=== PATIENT | female | born 1960 | race Caucasian/White ===

== ENCOUNTER 2018-05-06 09:58 | Day surgery (SDC) | payer MEDICARE, MEDICAID ==
[~2018-05-06 09:58] MED LIST: CEFAZOLIN 2 Gram 2 GM/50 ML BAG IVPB ONE; CELECOXIB 100 MG CAPSULE PO ONE; FAMOTIDINE 20MG TABLET PO ONE; MECLIZINE 25 MG TABLET PO ONE; METOCLOPRAMIDE 10 MG TABLET PO ONE; VANCOMYCIN HCL 1,000 MG in DEXTROSE 5 % IN WATER 250 ML IVPB ONE
[2018-05-06] MEDS ORDERED: MIDAZOLAM HCL 2MG/2ML VIAL IV ONE (09:59)
[2018-05-06] MEDS ORDERED: EPHEDRINE SULFATE 50 MG/ML ML IV ONE (09:59)
[2018-05-06] MEDS ORDERED: PROPOFOL 10 MG/ML VIAL IV ONE (09:59)
[2018-05-06] MEDS ORDERED: *PACU ONLY* KETAMINE HCL 10 MG/ML (20ML) VIAL IV ONE (09:59)
[2018-05-06] MEDS ORDERED: CEFAZOLIN 2 Gram 2 GM/50 ML BAG IVPB ONE (09:59)
[2018-05-06] MEDS ORDERED: TRANEXAMIC ACID 1,000 MG/10 ML ML IV ONE ×2 (09:59)
[2018-05-06] MEDS ORDERED: 0.9 % SODIUM CHLORIDE 10 ML VIAL IVP ONE (09:59)
[2018-05-06] MEDS ORDERED: BUPIVACAINE 0.5% W/EPI MPF 30 ML VIAL IVP ONE (09:59)
[2018-05-06] MEDS ORDERED: PHENYLEPHRINE HCL 10 MG/ML VIAL IVP ONE (09:59)
[2018-05-06 11:02] LABS: ABO GROUP A; ANTIBODY SCREEN NEGATIVE (NEGATIVE); RH TYPE POSITIVE
[2018-05-06] MEDS ORDERED: ACETAMINOPHEN 325 MG TAB PO PRN (15:19)
[2018-05-06] MEDS ORDERED: NALOXONE 0.4 MG/1 ML VIAL IVP PRN (15:19)
[2018-05-06] MEDS ORDERED: ZOLPIDEM TARTRATE 5 MG TABLET PO PRN (15:19)
[2018-05-06] MEDS ORDERED: AL HYDROX/MAG HYDROX 30ML UD PO PRN (15:19)
[2018-05-06] MEDS ORDERED: TRAMADOL HCL 50 MG TABLET PO PRN (15:19)
[2018-05-06] MEDS ORDERED: HYDROCODONE/APAP 10/325 TABLET PO PRN (15:19)
[2018-05-06] MEDS ORDERED: ONDANSETRON HCL IV 4 MG/2 ML VIAL IVP PRN (15:19)
[2018-05-06] MEDS ORDERED: BISACODYL 10 MG SUPP RC PRN (15:19)
[2018-05-06] MEDS ORDERED: DIPHENHYDRAMINE HCL 25 MG CAPSULE PO PRN (15:19)
[2018-05-06] MEDS ORDERED: ACETAMINOPHEN W/ CODEINE 300MG/60MG TABLET PO PRN ×2 (15:19)
[2018-05-06] MEDS ORDERED: KETOROLAC 30 MG/ML VIAL IVP PRN ×2 (15:19)
[2018-05-06] MEDS ORDERED: MAGNESIUM HYDROXIDE 30 ML UDC PO PRN (15:19)
[2018-05-06] MEDS ORDERED: HYDROMORPHONE HCL 2 MG/ML VIAL IM PRN (15:19)
[2018-05-06] MEDS ORDERED: ALBUTEROL SULFATE (0.083%) 2.5 MG/3 ML NEB INH ONE (16:50)
[2018-05-06] MEDS: HYDROXYZINE PAMOATE 50 MG PO SCH ×2 (17:31→22:02)
[2018-05-06] MEDS: CEFAZOLIN 2 Gram 2 GM/50 ML BAG IVPB SCH (20:59)
[2018-05-06] MEDS: POTASSIUM CHLORIDE/D5-0.9%NACL 20 MEQ/1,000 ML BAG IV SCH (21:59)
[2018-05-06] MEDS ORDERED: PATIENT OWN MED: PRAZOSIN 2 MG PO SCH (22:00)
[2018-05-06] MEDS: DOCUSATE SODIUM 100 MG CAPSULE PO SCH (22:00)
[2018-05-06] MEDS ORDERED: ZOLPIDEM 6.25 MG PO SCH (22:00)
[2018-05-07] MEDS: HYDROCODONE/APAP 10/325 TABLET PO PRN ×3 (03:17→15:44)
[2018-05-07] MEDS: CEFAZOLIN 2 Gram 2 GM/50 ML BAG IVPB SCH ×2 (05:32→13:47)
[2018-05-07] MEDS: POTASSIUM CHLORIDE/D5-0.9%NACL 20 MEQ/1,000 ML BAG IV SCH ×2 (06:12→11:09)
[2018-05-07 07:00] LABS: HEMATOCRIT 38.4 % (35.0-47.0); HEMOGLOBIN 12.8 gm/dl (11.6-16.0)
[2018-05-07] MEDS ORDERED: PATIENT OWN MED: OMEPRAZOLE 20 MG PO SCH (07:00)
[2018-05-07 07:17] LABS: BLOOD UREA NITROGEN 8 mg/dL (6-20); CREATININE 0.8 mg/dL (0.5-0.9); EST GLOMERULAR FILTRATION RATE > 60 mL/min; GLUCOSE,RANDOM 151 mg/dL (74-109)
[2018-05-07] MEDS: DOCUSATE SODIUM 100 MG CAPSULE PO SCH (08:30)
[2018-05-07] MEDS: FERROUS SULFATE 325 MG TAB PO SCH (08:39)
[2018-05-07] MEDS ORDERED: PNEUM 23-VAL ADULT IM ONE (10:00)
[2018-05-07] MEDS ORDERED: RIVAROXABAN 10 MG TABLET PO SCH (10:00)
[2018-05-07] MEDS ORDERED: PATIENT OWN MED: VRAYLAR 3 MG PO SCH (10:00)
[2018-05-07] MEDS ORDERED: FETZIMA 120 MG PO SCH (10:00)
--- NOTE | 2018-05-07 10:46 | Rehab Evaluation ---
Patient Information - Patient Information Diagnosis: R knee DJD Ordered Treatment: PT Evaluate and Treat Status: Initial Evaluation Surgery: Yes (TKA R) Date of Surgery: 05/06/18 Past Medical/Surgical Hx: PAST MEDICAL/SURGICAL HISTORY Past Surgical History laparascope EGD c scope uterus removed PMH - Respiratory Hx Respiratory Disorders Yes Hx Asthma Yes: as a young child Hx Bronchitis Yes Hx Chronic Obstructive No Pulmonary Disease (COPD) Hx Dyspnea No Hx Pneumonia No Hx Pulmonary Embolism No Hx Sleep Apnea No Hx Tuberculosis No Hx of CPAP No PMH - Cardiovascular Hx Cardiovascular Disorders No Exercise Tolerance Good PMH - Neuro Hx Neurological Disorders No PMH - GI Hx Gastrointestinal Disorders Yes Hx Abdominal Pain No Hx Celiac Disease No Hx Crohn's Disease No Hx Diverticulitis No Hx Gastrointestinal Bleed No Hx Gastroesophageal Reflux Yes: on meds Hx Hepatitis/Jaundice No Hx Hiatal Hernia No Hx Irritable Bowel No Hx Liver Disease No Hx Nausea/Vomiting No Hx Obstructive Bowel No Hx Pancreatitis No Hx Rectal Bleeding No Hx Ulcer No Hx Weight Loss/Weight Gain No PMH - Hx Genitourinary Disorders No Hx Age of Menopause 27 Hx Bladder Problem No Hx Dialysis No Hx Kidney Stones No Hx Renal Disease No Hx Urinary Tract Infection No Comment: 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26 PMH - Endocrine Hx Endocrine Disorders No Hx Diabetes No Hx Thyroid Disease No PMH - Musculoskeletal Hx Musculoskeletal Disorders Yes Hx Arthritis Yes Hx Back Injury No Hx Fibromyalgia No Hx Gout No Hx Musculoskeletal Disease No Hx Osteoporosis No PMH - Psych Hx Psychiatric Problems Yes Hx Anxiety Yes Hx Behavior Problems No Hx Depression Yes Hx Emotional Abuse No Hx Sexual Abuse No Hx Suicide Attempt No Major Depressive Episode Yes Feelings of Hopelessness No Comment: Bipolar on meds PMH - Hematology/Oncology Hx Hematology/Oncology Yes Disorders Hx Anemia Yes: in past Hx Blood Disorders No Hx Bruising No Hx Cancer No Hx Chemotherapy No Hx Radiation Therapy No Hx Clotting Problems No Hx Sickle Cell Disease No Hx Unexplained Bleeding No Hx Blood Transfusion Reaction No Premorbid Status: Detail (The patient was independent with all mobilty prior to surgery.) Social History: Detail (The patient lives with family in a 2 story house with bathroom with walk in shower upstairs. The patient states she will not be going upstairs immediately after surgery. The patient's house has 4 steps at the enterance with 2 railings. The patient's home has one and 1/2 bathrooms with both bathrooms having standard toilets without grab bars and the upstairs bathroom having the walk in shower with grab bars. The patient has a 2 wheeled walker.) Precautions: [place], Fall, Other (WBAT on the R LE.) - Time With Patient Total Time Spent With Patient (Min): 30 Treatment Procedures: Detail (Initial Evaluation, Gait training and instruction in HEP.) Subjective Information - Subjective Information Per Patient (The patient had minimal complaints of pain . The patient did not rate her pain using the 0-10 pain scale.) Objective Data - Mental Status Patient Orientation: Oriented x3 - Visual Perception Appears within normal limits for therapeutic activities - ROM Not within normal limits (The patient's R knee AROM is limited as to be expected following TKA surgery. All other LE AROM is WNL.) - Strength/Tone Not within normal limits (The patient's R LE strength was not tested s/p surgery but is functional ( the patient is able to complete a SLR). The patient did have trouble isolating the quadricep muscle group while completing a quad set. The patient's L LE strength is generally 4+ to 5/5.) - Bed Mobility Independent (The patient was independent with supine to and from sit transfer and scooting up in bed.) - Transfers Independent (The patient was independent with sit to and from stand transfer.) - Balance Balance Sitting: Good Balance Standing: Good - Sensation Intact - Gait Detail (The patient ambulated with a 2 wheeled walker WBAT on the R LE a distance of 120 feet x 1 independently. The patient ambulated on 4 steps with one railing and folded walker with supervision for safety only.) Therapy Assessment - Therapy Assessment Detail (The patient was independent with bed mobility, transfers and ambulation , with supervision on stairs for safety only. The patient has met all inpatient PT goals and is discharged from inpatient PT. The patient is to continue with Home PT.) Patient Education - Patient Education Teaching Topic: Exercise/Activity (The patient completed TKE exercises supine safely and with correct technique: heel slides, ankle pumps, quad sets, gluteal sets, hamstring sets, SLR.) Response: Return Demonstration Teaching Method: Handout Teaching Recipient: Patient Barriers To Learning: Age Related Problem List - Problem List Physical Therapy Problem List: Detail (1) Decreased R knee AROM and strength as to be expected following surgery.) Goals - Goals Physical Therapy Goals: All inpatient PT goals have been met. Prognosis - Prognosis Good Plan - Plan Physical Therapy Plan: Patient has completed all inpatient PT goals. Pt. is to continue with Home PT upon discharge.
[2018-05-07] MEDS: HYDROXYZINE PAMOATE 50 MG PO SCH (11:12)
--- NOTE | 2018-05-07 11:49 | Rehab Evaluation ---
Patient Information - Patient Information Diagnosis: R knee DJD Ordered Treatment: OT Evaluate and Treat Status: Initial Evaluation Surgery: Yes (TKA R) Date of Surgery: 05/06/18 Past Medical/Surgical Hx: PAST MEDICAL/SURGICAL HISTORY Past Surgical History laparascope EGD c scope uterus removed PMH - Respiratory Hx Respiratory Disorders Yes Hx Asthma Yes: as a young child Hx Bronchitis Yes Hx Chronic Obstructive No Pulmonary Disease (COPD) Hx Dyspnea No Hx Pneumonia No Hx Pulmonary Embolism No Hx Sleep Apnea No Hx Tuberculosis No Hx of CPAP No PMH - Cardiovascular Hx Cardiovascular Disorders No Exercise Tolerance Good PMH - Neuro Hx Neurological Disorders No PMH - GI Hx Gastrointestinal Disorders Yes Hx Abdominal Pain No Hx Celiac Disease No Hx Crohn's Disease No Hx Diverticulitis No Hx Gastrointestinal Bleed No Hx Gastroesophageal Reflux Yes: on meds Hx Hepatitis/Jaundice No Hx Hiatal Hernia No Hx Irritable Bowel No Hx Liver Disease No Hx Nausea/Vomiting No Hx Obstructive Bowel No Hx Pancreatitis No Hx Rectal Bleeding No Hx Ulcer No Hx Weight Loss/Weight Gain No PMH - Hx Genitourinary Disorders No Hx Age of Menopause 27 Hx Bladder Problem No Hx Dialysis No Hx Kidney Stones No Hx Renal Disease No Hx Urinary Tract Infection No Comment: 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26 PMH - Endocrine Hx Endocrine Disorders No Hx Diabetes No Hx Thyroid Disease No PMH - Musculoskeletal Hx Musculoskeletal Disorders Yes Hx Arthritis Yes Hx Back Injury No Hx Fibromyalgia No Hx Gout No Hx Musculoskeletal Disease No Hx Osteoporosis No PMH - Psych Hx Psychiatric Problems Yes Hx Anxiety Yes Hx Behavior Problems No Hx Depression Yes Hx Emotional Abuse No Hx Sexual Abuse No Hx Suicide Attempt No Major Depressive Episode Yes Feelings of Hopelessness No Comment: Bipolar on meds PMH - Hematology/Oncology Hx Hematology/Oncology Yes Disorders Hx Anemia Yes: in past Hx Blood Disorders No Hx Bruising No Hx Cancer No Hx Chemotherapy No Hx Radiation Therapy No Hx Clotting Problems No Hx Sickle Cell Disease No Hx Unexplained Bleeding No Hx Blood Transfusion Reaction No Premorbid Status: Detail (The patient was independent with all mobilty prior to surgery. Pt. was Ind. with all I/ADL's, including self care, home management, and driving.) Social History: Detail (The patient lives with family in a 2 story house with bathroom with walk in shower upstairs. The patient states she will not be going upstairs immediately after surgery. The patient's house has 4 steps at the enterance with 2 railings. Pt. reported her bedroom and bathroom are on the main floor. Bathroom has a tub/shower combo and standard toilet, with no grab bars. Pt. is in the process of obtaining a tub bench for bathing. Pt. has family/friends that can assist if needed, including her daughter who lives with her.) Precautions: [place], Fall, Other (WBAT on the R LE.) - Time With Patient Total Time Spent With Patient (Min): 20 Treatment Procedures: Detail (OT PHILIPPE AGUILAR. Session was concluded with pt. seated EOB, call light and bedside table within reach and all needs met.) Objective Data - Pain Pain Present: Yes Pain Scale Used: Numeric (1 - 10) (6/10 RLE) - Mental Status Patient Orientation: Oriented x3 (Pt. presented as slightly impulsive/quick movements, and required min VC to slow down to reduce fall risk and improve safety with functional mobility, dressing, and toileting.) - Visual Perception Appears within normal limits for therapeutic activities - ROM Within normal limits (BUE AROM WNL) - Strength/Tone Within normal limits (BUE MMT 5/5 all planes.) - Coordination Appears within normal limits for therapeutic activities - Bed Mobility Independent (supine to seated EOB.) - Transfers Independent (sit<>stand EOB to walker and standard toilet to walker.) - Balance Balance Sitting: Good Balance Standing: Fair - Sensation Intact (BUE fingertips light touch intact.) - ADL's/IADL's Detail (Educ. was provided in adaptive dressing techniques. Pt. returned demo. and verbalized understanding. Pt. does not need AE (such as senior hadoop developer) at this time, and is very mobile. Pt. dressed total body Ind. (tshirt, elastic waist shorts, and undergarments). Modified Ind. toileting. Min VC and educ. provided to maximize safety with toilet t/f (pt. sat sideways on toilet instead of turning total body).) Therapy Assessment - Therapy Assessment Detail (In-pt. OT services not recommended at this time. Pt. demo. Ind. and safety with ADL's and has a positive support system with assistance if needed at home.) Patient Education - Patient Education Teaching Topic: Equipment Use Response: Return Demonstration, Verbalize Understanding Teaching Method: Discussion, Demonstration Teaching Recipient: Patient Barriers To Learning: None Prognosis - Prognosis Good Plan - Plan Occupational Therapy Plan: D/C from OT services at this time. Educ. was provided to call rehab dept. if Q's arise upon returning home. Pt. has [facility] set-up.
--- NOTE | 2018-05-07 22:14 | Discharge Summary ---
DATE OF ADMISSION: 05/06/2018 DATE OF DISCHARGE: 05/07/2018 DATE OF SURGERY: 05/06/2018 HISTORY: Mrs. Duque is a delightful 57-year-old male who presents with end- stage arthrosis of her right knee. She was admitted after right total knee arthroplasty. Postoperatively she did well. Her hospital course was unremarkable. Discharge hemoglobin was 12.8. She did not require transfusion. DISCHARGE INSTRUCTIONS: The plan is to discharge her to home in the care of her family. Home PT and Visiting Nurse has been arranged. She will be given [place] for pain and Xarelto for DVT prophylaxis. She will follow-up in my office in four weeks. The Visiting Nurse will remove her sutures in two weeks. Her discharge condition was good. FINAL DIAGNOSIS/PRIMARY DIAGNOSIS: END-STAGE ARTHROSIS OF THE RIGHT KNEE. OPERATIONS AND PROCEDURES: CEMENTED RIGHT TOTAL KNEE ARTHROPLASTY. JOB NUMBER: [id number] MTDD
--- NOTE | 2018-05-07 23:03 | Operative Note ---
DATE: 05/06/2018 PREOPERATIVE DIAGNOSIS: END-STAGE ARTHROSIS OF THE RIGHT KNEE. POSTOPERATIVE DIAGNOSIS: END-STAGE ARTHROSIS OF THE RIGHT KNEE. PROCEDURE: Cemented right total knee arthroplasty using [employer] II components, with a size 4 Oxinium femur, size 3 stemmed tibial baseplate, a 9 mm lipped highly cross-linked tibial insert, and a 32 mm all-plastic patella. STAFF SURGEON: JORI NUR M.D. ANESTHESIA: SPINAL. PREPARATION: CHLORAPREP. INDIVIDUAL CONSIDERATIONS: NONE. PROCEDURE: The patient was taken to the Operating Room and placed supine on the operating table. She had a successful induction with spinal anesthetic. Her right lower extremity was then prepped and then draped in the usual fashion. The patient had a midline approach to the knee. The limb was elevated and the tourniquet was inflated to 215 mmHg. Sharp dissection carried down through the skin and subcutaneous tissues. Small veins were coagulated with a Bovie. A medial arthrotomy was performed. The patella was everted and the knee was flexed. The patient had exposed bone in the medial and patellofemoral compartments with bone loss medially. There were loose bodies and large marginal osteophytes. The fat pad was resected, there was no ACL present, the capsule was released from the medial proximal tibia and provisional anterior meniscectomies were performed. The initial femoral airline pilot/first officer hole was then made freehand. The intramedullary femoral cutting jig was placed. It was cut in 7.0 degrees of valgus and adjusted for rotation and secured with pins for a 10 mm resection. The initial transverse cut was then made. The skin guide was placed for the anterior and posterior airline pilot/first officer holes. It was found that a size 4 would be appropriate but I had to translate it anteriorly to avoid notching the femur. This was done with 2 mm. The anterior and posterior cuts followed by chamfer cuts were made, osteophytes were removed, and a size 4 trial was placed and found to fit well. The tibia was brought forward and the remainder of the meniscal remnants were removed with a Bovie. The extraarticular tibial cutting jig was placed. It was cut in neutral with a 3 degree AP slope. Care was taken to adjust for rotation and flexion using the extraarticular alignment guide and bony landmarks. It was set for a 9 mm resection, keyed off the high lateral side, and secured with pins. When cutting the tibia, care was taken to preserve the PCL insertion on the tibia. Large medial osteophytes were removed and it was found that a size 3 baseplate would fit appropriately. It was adjusted for rotation and secured with pins. With the femoral trial and the tibial trial and a 9 mm lipped trial, there was excellent motion and stability, ligamentous balance, rotation, and alignment were thought to be normal. The femoral airline pilot/first officer holes were impacted and the triflange tibial stamp was impacted and these trial components were removed. The patient had a marginal patella thickness-galvin, but she was diminutive, so I elected to remove roughly 9 mm of bone. I was able to fit a 32 patella and the three airline pilot/first officer holes were drilled. The knee was then thoroughly irrigated out with pulsatile Betadine to remove any visual or palpable debris. The tourniquet was let down. Hemostasis was obtained with a Bovie. I irrigated again. Bony surfaces were then dried. A size 3 stemmed tibial baseplate was cemented into place, followed by impaction of the 9 mm lipped highly cross-linked tibial insert, followed by cementing in the size 4 Oxinium femur, followed by cementing in the 32 mm diameter patella. Implant surfaces were compressed, excess cement was removed, and after the cement had set, there was excellent motion and stability, ligamentous balance, rotation and alignment and patellofemoral tracking were normal. No lateral release was required. The tourniquet was let down and hemostasis was obtained with the Bovie. Again, final pulsatile Betadine and irrigation and saline. The skin and subcutaneous tissue and periosteum were then infiltrated with 30 mL of 0.5% Marcaine with Epinephrine. The capsule was then closed with a running #2 Quill. The subcu was closed in layers with running #0 Quill in layers. The skin was closed with juanita. The patient did receive a gram of Tranexamic Acid preoperatively. I mixed a gram of Tranexamic Acid with 30 mL of saline and injected it into the knee through a sterile #18 gauge needle. A sterile Bulkee compressive MARYAN-type dressing was applied. The patient tolerated the procedure well. Needle and sponge counts were correct. Estimated blood loss was minimal and she was taken back to Recovery in good condition. There were no complications. JOB NUMBER: [id number] MTDD
== END 2018-05-07 15:47 | disposition home or self-care (01) ==
LOC: SUR 09:58 → MEDSURG 16:27 → SUR 05-07 15:47
PROVIDERS: ATTEND Orthopaedic Surgery
DX: M17.11 Unilateral primary osteoarthritis, right knee (principal)
CPT/HCPCS: 27447; 01402; 85018; 85014; 80048; 86900; 86901; 86850; J2405; J3370; J0690 ×2; J3490 ×3; G8978; G8979; G8980; G8987; G8988; G8989; J2370; J3480; J7060; J7613